=== PATIENT | male | born 1960 | race African-American/Black ===

== ENCOUNTER 2016-12-24 10:36 | Emergency (ER) | payer OTHER ==
[~2016-12-24] VITALS: Ht 172.7 cm; Wt 72.1 kg
[~2016-12-24 10:36] MED LIST: GABAPENTIN300 MG ORAL; GLIPIZIDE5 MG ORAL; IBUPROFEN600 MG ORAL; LASIX20 M1 ORAL; METFORMIN HCL500 M1 ORAL; NIFEDICAL XL30 MG ORAL; POTASSIUM CHLO20 ME2 ORAL; ZITHROMAX250 MG ORAL
[2016-12-24] MEDS ORDERED: NKM (10:44)
--- NOTE | 2016-12-24 11:00 | Emergency Room Report ---
History of Present Illness General Chief Complaint: Pain Source: Patient Present Illness HPI 56-year-old male, history of diabetes noncompliant with his medications, presenting with bilateral leg pain for one month. Patient states that she has actually had this pain for the last 2 years but it comes and goes. Patient describes pain as burning and tingling, sometimes pins and needles in the toes. Patient denies any fever or chills inability to ambulate. Patient states that he is supposed to be taking metformin for his diabetes, but has not been taking it because it upsets his stomach. Patient has not seen a doctor to replace medication Allergies: Coded Allergies: No Known Allergies (Unverified , 04/21/14) Patient History Past Medical History: see triage record Past Surgical History: none Pertinent Family History: none Reviewed Nursing Documentation: PMH: Agreed, PSxH: Agreed Nursing Documentation-PMH Hx Hypertension: Yes Hx Diabetes: Yes - DM2. Hx Cancer: No Hx Gastrointestinal Problems: No Hx Neurological Problems: No Review of Systems All Other Systems: negative except mentioned in HPI Physical Exam Vital Signs Date Time Temp Pulse Resp B/P (MAP) Pulse Ox O2 Delivery O2 Flow Rate FiO2 12/24/16 10:39 97.9 91 20 142/89 97 Room Air Sp02 EP Interpretation: reviewed, normal General Appearance: normal inspection, well appearing, no apparent distress, alert, GCS 15, non-toxic Head: normocephalic, atraumatic Eyes: bilateral eye normal inspection, bilateral eye PERRL, bilateral eye EOMI ENT: normal ENT inspection, normal pharynx, normal voice, moist mucus membranes Neck: normal inspection, full range of motion, supple Respiratory: normal inspection, lungs clear, normal breath sounds, no respiratory distress, no retraction, no wheezing, speaking full sentences, chest symmetrical Cardiovascular #1: normal inspection, regular rate, rhythm, no edema, normal capillary refill Cardiovascular #2: 2+ radial (R), 2+ radial (L) Gastrointestinal: normal inspection, non tender, soft, non-distended, no guarding Genitourinary: no CVA tenderness Musculoskeletal: normal inspection, back normal, normal range of motion, non- tender, other - No gross bony abnormalities bilateral lower extremities, full range of motion, no warmth or erythema, no effusion, no swelling Neurologic: normal inspection, alert, oriented x3, responsive, motor strength/ tone normal, sensory intact, normal gait, speech normal, other - Motors strength and sensation intact throughout all 4 extremities Psychiatric: normal inspection, judgement/insight normal, memory normal Skin: normal inspection, normal color, no rash, warm/dry, well hydrated, normal turgor Medical Decision Making Diagnostic Impression: Primary Impression: Chronic painful diabetic neuropathy ER Course 56 yo M. with bilateral lower extremity pain for one month DDX: History and physical not concerned with fracture or dislocation. No cellulitis. Likely secondary to diabetic neuropathy given history Plan: BGM, pain control ER course: BGM normal 120 Disposition: Patient is to be discharged to home. Prescriptions given are Tylenol Patient is instructed to follow up with their primary care doctor within one week as he will need a new diabetes medication regimen Strict return precautions discussed with patient such as fever, chills, worsening/severe pain, nausea, vomiting, which may indicate severe illness. Patient verbalizes understanding and agrees with plan. Please note that this Emergency Department Report was dictated using [employer] collections analyst technology software, occasionally this can lead to erroneous entry secondary to interpretation by the dictation equipment Last Vital Signs Date Time Temp Pulse Resp B/P (MAP) Pulse Ox O2 Delivery O2 Flow Rate FiO2 12/24/16 10:39 97.9 91 20 142/89 97 Room Air Disposition: HOME, SELF-CARE Condition: Stable Scripts Ibuprofen* (MOTRIN*) 600 Mg Tablet 600 MG ORAL Q8H Y for For Pain, #30 TAB 0 Refills Prov: Kindra Cordova M.D. 12/24/16 Patient Instructions: Neuropathic Pain Additional Instructions: Please follow up with your primary care doctor within 3 days for your diabetes Please come back to the emergency room if you are having severe/worsening pain, headache, chest pain, shortness of breath, or intractable nausea or vomiting Kindra Cordova M.D. Dec 24, 2016 11:00
[2016-12-24] MEDS ORDERED: IBUPROFEN600 MG ORAL (11:01)
[2016-12-24 11:20] VITALS: BP 159/105
[2016-12-24] MEDS ORDERED: Bacitracin Oint UD TOPIC ONE ×2 (11:30)
== END 2016-12-24 11:35 | disposition home or self-care (01) ==
LOC: EMR 10:56
DX: E11.40 Type 2 diabetes mellitus with diabetic neuropathy, unspecified (principal); I10 Essential (primary) hypertension; G89.29 Other chronic pain; M79.605 Pain in left leg; M79.604 Pain in right leg
CPT/HCPCS: 82962; 99284

== ENCOUNTER 2019-05-21 03:11 | Inpatient (IN) | payer MEDICAID, OTHER ==
[~2019-05-21] VITALS: Ht 172.7 cm; Wt 78.9 kg
[2019-05-21] VITALS (9 sets, daily range): BP systolic 129–193; BP diastolic 68–105
[~2019-05-21 03:11] MED LIST changes: +NKM
--- NOTE | 2019-05-21 03:20 | NUR ---
ED Nurse Note: Pt brought into ED from street by ADAM [id number] for c/o SOB and congestion. Pt breathing is labored, mild wheezing noted. Pt able to speak in full sentences. ADAM notes pt was recently seen at [facility] for the same complaint and does not want to be on the street. Pt appears anxious. Pt is aaox4, pt denies any drug or alcohol use tonight. Pt connected to site monitor, HR tachy. Will continue to monitor.
[2019-05-21] MEDS ORDERED: Ipratropium 0.02% Inh Soln 2.5ml UD HHN ONE (03:30)
[2019-05-21] MEDS ORDERED: Albuterol ud Inhalation HHN ONE (03:30)
[2019-05-21] MEDS ORDERED: Solu-MEDROL 125mg Inj IVP ONE (03:30)
[2019-05-21 03:49] LABS: BASOPHILS % (AUTO) 1.5 % (0.0-2.0); EOSINOPHILS % (AUTO) 3.5 % (0.0-3.0); HEMATOCRIT 30.6 % (42.0-52.0); HEMOGLOBIN 11.1 G/DL (14.2-18.0); LYMPHOCYTES % (AUTO) 24.2 % (20.0-45.0); MEAN CORPUSCULAR VOLUME 84 FL (80-99); NEUTROPHILS % (AUTO) 59.8 % (45.0-75.0); PLATELET COUNT 192 K/UL (150-450); RED BLOOD COUNT 3.63 M/UL (4.70-6.10); RED CELL DISTRIBUTION WIDTH 12.9 % (11.6-14.8); WHITE BLOOD COUNT 4.4 K/UL (4.8-10.8)
[2019-05-21 04:00] LABS: ANION GAP 11 mmol/L (5-15); BLOOD UREA NITROGEN 33 mg/dL (7-18); CALCIUM 7.8 MG/DL (8.5-10.1); CARBON DIOXIDE 22 MMOL/L (21-32); CHLORIDE 109 MMOL/L (98-107); CREATININE 3.5 MG/DL (0.55-1.30); POTASSIUM 4.6 MMOL/L (3.5-5.1); SODIUM 142 MMOL/L (136-145)
[2019-05-21] MEDS ORDERED: Albuterol 90mcg Inhaler 8gm INH STA (04:03)
[2019-05-21 04:12] LABS: ALANINE AMINOTRANSFERASE 32 U/L (12-78); ALBUMIN 2.3 G/DL (3.4-5.0); ALBUMIN/GLOBULIN RATIO 0.4 (1.0-2.7); ALKALINE PHOSPHATASE 172 U/L (46-116); ASPARTATE AMINO TRANSFERASE 33 U/L (15-37); BILIRUBIN,TOTAL 0.3 MG/DL (0.2-1.0); CREATINE KINASE 413 U/L (26-308)
[2019-05-21] MEDS ORDERED: Metoprolol Tartrate 5mg/5ml Inj IVP STA (04:19)
--- NOTE | 2019-05-21 04:19 | Emergency Room Report ---
History of Present Illness General Chief Complaint: Dyspnea/Respdistress Source: Patient, EMS Present Illness HPI Patient brought in by paramedics. Is complaining of dyspnea. Apparently he has a history of both congestive heart failure and COPD. He says he needs an albuterol or inhaler treatment. He does not know what prednisone is. Paramedics did not hear wheezes. Patient was discharged from [facility] yesterday. He has no inhaler. He complains of shortness of breath and wheezing. He denies any fevers or chills. He is not clear about what work-up or medications were given at [facility]. He does say he received a breathing treatment there. He is uncertain if labs were performed. The patient denies prior cardiac disease however review of previous diagnoses here reveals that he has been treated for congestive heart failure in the past. No fevers, chills, sore throat, chest pain, palpitations, nausea, vomiting, diarrhea, dysuria, abdominal pain, joint pain, rashes, depression, anxiety, visual changes, dizziness, headache. In 2014 is where his discharge diagnoses: 1. Chest discomfort likely secondary to diastolic dysfunction, congestive heart failure exacerbation. 2. Lower extremity edema likely secondary to diastolic dysfunction, congestive heart failure exacerbation. 3. Hypokalemia. 4. Diabetes type 2 with neuropathy. 5. Hypertension, poorly controlled. 6. Smoking. Allergies: Coded Allergies: No Known Allergies (Unverified , 04/21/14) Patient History Past Medical History: see triage record Social History: Denies: smoking - prior, alcohol use, drug use - prior tox + for cocaine Social History Narrative homeless - was in [employer] - not record 1 year Reviewed Nursing Documentation: PMH: Agreed; PSxH: Agreed Nursing Documentation-PMH Hx Hypertension: Yes Hx Diabetes: Yes Hx Cancer: No Hx Gastrointestinal Problems: No Hx Neurological Problems: No Review of Systems All Other Systems: negative except mentioned in HPI Physical Exam Vital Signs Date Time Temp Pulse Resp B/P (MAP) Pulse Ox O2 Delivery O2 Flow Rate FiO2 05/21/19 03:12 98.2 111 20 173/98 (123) 95 Room Air 05/21/19 03:30 21 Sp02 EP Interpretation: reviewed, abnormal - Interpreted as low by me General Appearance: alert, mild distress, other - GCS 14 - slightly confused or not answering questions Head: normocephalic Eyes: bilateral eye normal inspection, bilateral eye PERRL, bilateral eye EOMI ENT: EOM grossly intact, moist mucus membranes Neck: full range of motion, supple Respiratory: decreased breath sounds, rales, wheezing, expiration Cardiovascular #1: tachycardia, edema - 1+ bilateral legs Cardiovascular #2: 2+ radial (R) Gastrointestinal: normal inspection, non tender, soft, decreased bowel sounds Genitourinary: no CVA tenderness Musculoskeletal: back normal, no calf tenderness, pelvis stable Neurologic: alert, motor strength/tone normal, oriented - X2, sensory intact, speech normal Psychiatric: anxious, other - slightly confused or not answering fully Skin: no rash, warm/dry Procedures Critical Care Time Critical Care Time Total Critical Care Time: 30 min bedside evaluation and treatment excludes procedures (EKG). Reason for critical care: Dyspnea, elevated troponin, congestive heart failure, repeat evaluations, renal failure. Possible complications: hypotension, hypertension, AL, shock, arrhythmias, metabolic acidosis, end organ damage, respiratory failure. Interventions: Breathing treatments, Lasix, aspirin, repeat evaluations. Course: Patient presented with dyspnea. Evaluation reveals congestive heart failure and bronchospasm. Aggressive treatment undertaken. Positive troponin treated with aspirin and metoprolol. Hypertension also treated with repeated doses of metoprolol. Patient diuresing and improving. Patient seems to have functional decline and some memory loss. Consultations: nursing staff, EMS, review of medical records, admitting physician Performed by: Dr. Watson Tolerated well condition = serious Medical Decision Making Diagnostic Impression: Primary Impression: CHF (congestive heart failure), NYHA class II Qualified Codes: I50.31 - Acute diastolic (congestive) heart failure Additional Impressions: Elevated troponin Renal failure Qualified Codes: N17.9 - Acute kidney failure, unspecified Declining functional status ER Course Patient presents with dyspnea. Differential includes COPD exacerbation, acute myocardial infarction, pneumonia, congestive heart failure amongst others. He has bronchospasm now. Evaluation with EKG, chest x-ray and labs. Patient will be treated with Solu-Medrol and breathing treatments. EKG sinus tachycardia with right bundle branch block nonspecific ST-T wave changes no injury pattern. Patient improved with breathing treatments. Complaining about leg cramps. Magnesium added. stretching leg muscles with improvement. 415 call with positive troponin. Aspirin nitrates and 1 dose of metoprolol ordered. Renal failure and elevated BNP. Lasix ordered. BP still high. Metoprolol repeated. Due to prolonged period for transport, patient admitted to Dr. Gentile. Not sure nature of confusion and/or lack of memory or truthful recall of prior events. BP better after repeat metoprolol. Laboratory Tests Test 05/21/19 03:32 05/21/19 05:30 White Blood Count 4.4 K/UL (4.8-10.8) L Red Blood Count 3.63 M/UL (4.70-6.10) L Hemoglobin 11.1 G/DL (14.2-18.0) L Hematocrit 30.6 % (42.0-52.0) L Mean Corpuscular Volume 84 FL (80-99) Mean Corpuscular Hemoglobin 30.6 PG (27.0-31.0) Mean Corpuscular Hemoglobin Concent 36.2 G/DL (32.0-36.0) H Red Cell Distribution Width 12.9 % (11.6-14.8) Platelet Count 192 K/UL (150-450) Mean Platelet Volume 6.7 FL (6.5-10.1) Neutrophils (%) (Auto) 59.8 % (45.0-75.0) Lymphocytes (%) (Auto) 24.2 % (20.0-45.0) Monocytes (%) (Auto) 11.0 % (1.0-10.0) H Eosinophils (%) (Auto) 3.5 % (0.0-3.0) H Basophils (%) (Auto) 1.5 % (0.0-2.0) Prothrombin Time 10.2 SEC (9.30-11.50) Prothrombin Time INR 1.0 (0.9-1.1) Activated Partial Thromboplast Time 33 SEC (23-33) Sodium Level 142 MMOL/L (136-145) Potassium Level 4.6 MMOL/L (3.5-5.1) Chloride Level 109 MMOL/L (98-107) H Carbon Dioxide Level 22 MMOL/L (21-32) Anion Gap 11 mmol/L (5-15) Blood Urea Nitrogen 33 mg/dL (7-18) H Creatinine 3.5 MG/DL (0.55-1.30) H Estimate Glomerular Filtration Rate 21.8 mL/min (>60) Glucose Level 114 MG/DL (74-106) H Calcium Level 7.8 MG/DL (8.5-10.1) L Magnesium Level 1.3 MG/DL (1.8-2.4) L Total Bilirubin 0.3 MG/DL (0.2-1.0) Aspartate Amino Transferase (AST) 33 U/L (15-37) Alanine Aminotransferase (ALT) 32 U/L (12-78) Alkaline Phosphatase 172 U/L (46-116) H Total Creatine Kinase 413 U/L (26-308) H Troponin I 0.146 ng/mL (0.000-0.056) Pro-B-Type Natriuretic Peptide 13871 pg/mL (0-125) H Total Protein 7.9 G/DL (6.4-8.2) Albumin 2.3 G/DL (3.4-5.0) L Globulin 5.6 g/dL Albumin/Globulin Ratio 0.4 (1.0-2.7) L Urine Color Pale yellow Urine Appearance Clear Urine pH 6.5 (4.5-8.0) Urine Specific [place] 1.010 (1.005-1.035) Urine Protein 4+ (NEGATIVE) H Urine Glucose (UA) 2+ (NEGATIVE) H Urine Ketones Negative (NEGATIVE) Urine Blood 3+ (NEGATIVE) H Urine Nitrite Negative (NEGATIVE) Urine Bilirubin Negative (NEGATIVE) Urine Urobilinogen Normal MG/DL (0.0-1.0) Urine Leukocyte Esterase Negative (NEGATIVE) Urine RBC 5-10 /HPF (0 - 0) H Urine WBC 0 /HPF (0 - 0) Urine Squamous Epithelial Cells None /LPF (NONE/OCC) Urine Bacteria None /HPF (NONE) Urine Opiates Screen Negative (NEGATIVE) Urine Barbiturates Screen Negative (NEGATIVE) Phencyclidine (PCP) Screen Negative (NEGATIVE) Urine Amphetamines Screen Negative (NEGATIVE) Urine Benzodiazepines Screen Negative (NEGATIVE) Urine Cocaine Screen Negative (NEGATIVE) Urine Marijuana (THC) Screen Negative (NEGATIVE) EKG Diagnostic Results Rate: normal Rhythm: NSR ST Segments: no acute changes - Right bundle branch block Rhythm Strip Diag. Results EP Interpretation: yes Rhythm: NSR, no PVC's, no ectopy Chest X-Ray Diagnostic Results Chest X-Ray Diagnostic Results : Chest X-Ray Ordered: Yes # of Views/Limited/Complete: 1 View Indication: Shortness of Breath EP Interpretation: Yes Interpretation: no effusion, no pneumothorax, other - CHF Impression: Other Electronically Signed by: Electronically signed by Jamie Watson MD Last Vital Signs Date Time Temp Pulse Resp B/P (MAP) Pulse Ox O2 Delivery O2 Flow Rate FiO2 05/21/19 08:25 Room Air 05/21/19 08:00 97.9 81 21 136/81 (99) 98 05/21/19 06:30 21 Status: improved Disposition: ADMITTED INPATIENT Condition: Serious Referrals: [facility],REFERRING (PCP) Jamie Watson MD May 21, 2019 04:19
[2019-05-21] MEDS ORDERED: Nitroglycerin 2% oint pkt TOPIC ONE (04:30)
--- NOTE | 2019-05-21 04:45 | NUR ---
ED Nurse Note: Pt resting in bed at this time, but was able to use urinal at bedside. Pt is in no acute distress at this time.
--- NOTE | 2019-05-21 05:30 | NUR ---
ED Nurse Note: RN at bedside to do pt belonging list. Pt being uncooperative and verbally abusive with RNs. Pt stated "don't touch my shit" "I already told you what's inside" and grabbed backpack from RN.
[2019-05-21 05:47] LABS: APPEARANCE,URINE CLEAR; BILIRUBIN, URINE NEGATIVE (NEGATIVE); COLOR,URINE PALE YELLOW; GLUCOSE, URINE (UA) 2+ (NEGATIVE); KETONES,URINE NEGATIVE (NEGATIVE); LEUKOCYTE ESTERASE ,URINE NEGATIVE (NEGATIVE); NITRITE,URINE NEGATIVE (NEGATIVE); PH,URINE 6.5 (4.5-8.0); PROTEIN,URINE 4+ (NEGATIVE); UROBILINOGEN,URINE NORMAL MG/DL (0.0-1.0)
[2019-05-21] MEDS: Metoprolol Tartrate 5mg/5ml Inj IVP SCH ×2 (05:50→05:57)
--- NOTE | 2019-05-21 06:00 | NUR ---
ED Nurse Note: Pt refused swabs for cre, vre, mrsa at this time and is acting uncooperative and using inapproriate language with RNs.
--- NOTE | 2019-05-21 06:10 | NUR ---
ED Nurse Note: Report given to SULY Boone.
--- NOTE | 2019-05-21 06:30 | NUR ---
ED Nurse Note: Pt taken to unit via gurney by RNs. Pt stable per ERMD, pt is aaox4, no acute distress noted. Pt is breathing normal, speaking in full sentences. VSS. Pt being uncooperative. Pt IV patent and intact. Pt belongings sent with pt.
--- NOTE | 2019-05-21 06:30 | NUR ---
NURSE NOTES: Received report from SULY Anthony, pt. brought up from ER, auto mechanic apprentice placed, VS taken, pt. refusing to do body assessment, bed in lowest position and call light within easy reach, bed alarm on, side rails up x's3, pt. aware to ask for assist when ambulating, pt. appears to be sating well on room air at 98%- no distress noted, urinal at bedside and within easy reach, RFA 22G IV intact/ patent, safety measures continued, will continue with plan of care. Addendum: 05/21/19 at 0658 by VANESSA AMBROSE RN RN Belongings list gone over with ER Nurse- emptied contents of bag- rx sent back to ER to be held until pt. discharge- charge nurse Roverto matias.
--- NOTE | 2019-05-21 06:35 | NUR ---
ED Nurse Note: Pt belongings counted upstairs on floor with unit nurses. Pt medications found in backpack and taken from pt. Pt meds locked in ER med box.
[2019-05-21] MEDS ORDERED: QUERCETIN DIHYDR1 GM MC (06:51)
[2019-05-21] MEDS ORDERED: AMLODIPINE BESY10 MG ORAL (06:51)
[2019-05-21] MEDS ORDERED: CARVEDILOL12.5 MG ORAL (06:51)
--- NOTE | 2019-05-21 07:31 | NUR ---
HAND-OFF: Report given to Kasey RN, pt. remains stable and no signs of distress noted- aware to f/u on admission orders and labs from am.
--- NOTE | 2019-05-21 07:32 | NUR ---
NURSE NOTES: Received patient in bed. Awake, verbal, able to make needs known. Call light within reach. On room air, no respiratory distress. Will admit to SDU level of care.
--- NOTE | 2019-05-21 08:45 | NUR ---
NURSE NOTES: Dr. Gentile called back, with orders to have Dr. Perez for cardiac consult, Cardiac diet, Troponin every 8 hours and ASA.
--- NOTE | 2019-05-21 09:00 | NUR ---
NURSE NOTES: Dr. Gentile at bedside.
--- NOTE | 2019-05-21 09:50 | NUR ---
NURSE NOTES: Dr. Perez at bedside.
--- NOTE | 2019-05-21 09:54 | NUR ---
NURSE NOTES: Dr. Perez ordered STAT 2D echo.
--- NOTE | 2019-05-21 09:58 | Cardiac Electrophysiology PN ---
Subjective Subjective [id number] Troponin leak could be due to Cr 3.5 Stat ECHO and repeat troponin Objective Last 24 Hour Vital Signs Date Time Temp Pulse Resp B/P (MAP) Pulse Ox O2 Delivery O2 Flow Rate FiO2 05/21/19 08:25 Room Air 05/21/19 08:00 97.9 81 21 136/81 (99) 98 05/21/19 07:47 78 05/21/19 06:50 97.8 77 20 165/99 (121) 98 05/21/19 06:30 98.2 80 17 160/67 99 Room Air 21 05/21/19 05:57 91 193/95 05/21/19 05:55 98.2 81 18 193/95 99 Room Air 21 05/21/19 05:50 83 175/105 05/21/19 05:50 98.2 90 20 175/105 99 Room Air 21 05/21/19 04:45 98.2 90 20 165/97 99 Room Air 21 05/21/19 04:34 69 173/98 05/21/19 04:34 173/98 05/21/19 03:57 69 18 100 Room Air 21 05/21/19 03:30 68 18 100 Room Air 21 05/21/19 03:20 111 20 Room Air 05/21/19 03:20 98.2 111 25 173/98 95 Room Air 05/21/19 03:12 98.2 111 20 173/98 (123) 95 Room Air Intake and Output 05/20/19 05/21/19 19:00 07:00 Intake Total 0 ml Balance 0 ml Intake Oral 0 ml Laboratory Tests Test 05/21/19 03:32 05/21/19 05:30 White Blood Count 4.4 K/UL (4.8-10.8) L Red Blood Count 3.63 M/UL (4.70-6.10) L Hemoglobin 11.1 G/DL (14.2-18.0) L Hematocrit 30.6 % (42.0-52.0) L Mean Corpuscular Volume 84 FL (80-99) Mean Corpuscular Hemoglobin 30.6 PG (27.0-31.0) Mean Corpuscular Hemoglobin Concent 36.2 G/DL (32.0-36.0) H Red Cell Distribution Width 12.9 % (11.6-14.8) Platelet Count 192 K/UL (150-450) Mean Platelet Volume 6.7 FL (6.5-10.1) Neutrophils (%) (Auto) 59.8 % (45.0-75.0) Lymphocytes (%) (Auto) 24.2 % (20.0-45.0) Monocytes (%) (Auto) 11.0 % (1.0-10.0) H Eosinophils (%) (Auto) 3.5 % (0.0-3.0) H Basophils (%) (Auto) 1.5 % (0.0-2.0) Prothrombin Time 10.2 SEC (9.30-11.50) Prothromb Time International Ratio 1.0 (0.9-1.1) Activated Partial Thromboplast Time 33 SEC (23-33) Sodium Level 142 MMOL/L (136-145) Potassium Level 4.6 MMOL/L (3.5-5.1) Chloride Level 109 MMOL/L (98-107) H Carbon Dioxide Level 22 MMOL/L (21-32) Anion Gap 11 mmol/L (5-15) Blood Urea Nitrogen 33 mg/dL (7-18) H Creatinine 3.5 MG/DL (0.55-1.30) H Estimat Glomerular Filtration Rate 21.8 mL/min (>60) Glucose Level 114 MG/DL (74-106) H Calcium Level 7.8 MG/DL (8.5-10.1) L Magnesium Level 1.3 MG/DL (1.8-2.4) L Total Bilirubin 0.3 MG/DL (0.2-1.0) Aspartate Amino Transf (AST/SGOT) 33 U/L (15-37) Alanine Aminotransferase (ALT/SGPT) 32 U/L (12-78) Alkaline Phosphatase 172 U/L (46-116) H Total Creatine Kinase 413 U/L (26-308) H Troponin I 0.146 ng/mL (0.000-0.056) Pro-B-Type Natriuretic Peptide 06256 pg/mL (0-125) H Total Protein 7.9 G/DL (6.4-8.2) Albumin 2.3 G/DL (3.4-5.0) L Globulin 5.6 g/dL Albumin/Globulin Ratio 0.4 (1.0-2.7) L Urine Color Pale yellow Urine Appearance Clear Urine pH 6.5 (4.5-8.0) Urine Specific [place] 1.010 (1.005-1.035) Urine Protein 4+ (NEGATIVE) H Urine Glucose (UA) 2+ (NEGATIVE) H Urine Ketones Negative (NEGATIVE) Urine Blood 3+ (NEGATIVE) H Urine Nitrite Negative (NEGATIVE) Urine Bilirubin Negative (NEGATIVE) Urine Urobilinogen Normal MG/DL (0.0-1.0) Urine Leukocyte Esterase Negative (NEGATIVE) Urine RBC 5-10 /HPF (0 - 0) H Urine WBC 0 /HPF (0 - 0) Urine Squamous Epithelial Cells None /LPF (NONE/OCC) Urine Bacteria None /HPF (NONE) Urine Opiates Screen Negative (NEGATIVE) Urine Barbiturates Screen Negative (NEGATIVE) Phencyclidine (PCP) Screen Negative (NEGATIVE) Urine Amphetamines Screen Negative (NEGATIVE) Urine Benzodiazepines Screen Negative (NEGATIVE) Urine Cocaine Screen Negative (NEGATIVE) Urine Marijuana (THC) Screen Negative (NEGATIVE) Microbiology Date/Time Source Procedure Growth Status 05/21/19 06:30 Rectum Received Luís Peerz MD May 21, 2019 09:58
[2019-05-21] MEDS: Albuterol/Ipratropium 3ml neb HHN SCH ×4 (12:22→23:00)
--- NOTE | 2019-05-21 13:13 | Diagnostic Imaging Report ---
Indication: Dyspnea Comparison: 05/26/2015 A single view chest radiograph was obtained. Findings: Interstitial edema demonstrated with prominent pulmonary vascularity and borderline cardiomegaly. Bones are slightly osteopenic. IMPRESSION: Interstitial edema/CHF versus pneumonitis. Correlate clinically
--- NOTE | 2019-05-21 13:27 | NUR ---
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 98.2 HR 111 RR 20 B/P 173/98 WBC 4.4 BUN 33 CR 3.5 MG 1.3 ALT 172 CK 413 TROP 0.146 BNP [id number] IS: LASIX IV SOLU MEDROL IV ALB HHN ALT HHN NITRO SL ASA PO ADMITTED TO STEP DOWN STEP DOWN STATUS DCP PENDING HOSPITAL STAY
--- NOTE | 2019-05-21 13:36 | NUR ---
NURSE NOTES: Dr. Perez made aware regarding the trending up troponin level. Awaiting for Doctor to reply.
--- NOTE | 2019-05-21 15:15 | NUR ---
NURSE NOTES: Dr. Madrigal at bedside.
--- NOTE | 2019-05-21 16:00 | History and Physical Report ---
DATE OF ADMISSION: 05/21/2019 REASON FOR ADMISSION: Dyspnea and chest pain. HISTORY OF PRESENT ILLNESS: The patient is a 58-year-old patient brought in by paramedics complaining of dyspnea. He has history of CHF, COPD. The patient was given nebs. The patient was discharged from [facility] yesterday without any inhalers. The patient presents with complaint of shortness of breath and wheezing. The patient was seen and evaluated for possibility of chest pain, acute coronary syndrome. PAST MEDICAL HISTORY: Notable for diastolic dysfunction, congestive heart failure, diabetes, hypertension, smoking, possible COPD. MEDICATIONS: Reviewed. ALLERGIES: Reviewed. SOCIAL HISTORY: The patient does have a history of smoking, but does not smoke currently. The patient does have a history of cocaine use. The patient is homeless. FAMILY HISTORY: Otherwise noncontributory. REVIEW OF SYSTEMS: Notable for hypertension, diabetes, otherwise negative. PHYSICAL EXAMINATION: GENERAL: The patient is a well-developed male without significant distress. VITAL SIGNS: Blood pressure 136/81, pulse 81, respiratory rate 21, O2 saturation 98%. The patient is afebrile. HEENT: Negative. NECK: Supple. LUNGS: Notable for reduced breath sounds. Occasional wheezes. CARDIAC: S1 and S2. Regular rate and rhythm. ABDOMEN: Soft, nontender. EXTREMITIES: No edema. LABORATORY DATA: Reviewed. BUN 33, creatinine 3.5. Liver enzymes elevated. Troponin 0.146. White count 4.4, hematocrit 30, and platelets reviewed. IMPRESSION: Chest pain, congestive heart failure, longstanding history of smoking, possible COPD, hypertension, chronic pain syndrome, diabetes, and hyperlipidemia. RECOMMENDATIONS: Supportive care. We will assess further as to underlying issues with respiratory status and optimize. Cardiac evaluation. Renal evaluation to follow. Reassess and recommend further for changes, interventions, and safe discharge. Konstantin Gentile M.D. DR: Teri JOB#: [id number] CC: SHELLY
--- NOTE | 2019-05-21 16:30 | Consultation ---
DATE OF CONSULTATION: 05/21/2019 CARDIOLOGY CONSULTATION CONSULTING PHYSICIAN: Luís Perez M.D. REFERRING PHYSICIAN: Konstantin Gentile M.D. REASON FOR CONSULTATION: Chest pain in a patient with history of congestive heart failure. HISTORY OF PRESENT ILLNESS: The patient is a 58-year-old gentleman with history of hypertension and congestive heart failure, who is currently homeless, was brought in from the street as he was complaining of shortness of breath. The patient was discharged from [facility] yesterday with similar complaint. Denies any fever, chills, or nausea, vomiting, or diaphoresis. The patient was admitted and EKG showed sinus rhythm, right bundle-branch block, however, troponin was elevated. At the time of my evaluation, the patient denies any chest pain. REVIEW OF SYSTEMS: Negative other than what was mentioned in the history of present illness. PAST MEDICAL HISTORY: As mentioned above. FAMILY HISTORY: Noncontributory. SOCIAL HISTORY: He smokes cigarettes and weed, but denies using any other street drugs. MEDICATIONS: Per reconciliation, but currently he does not take any. PHYSICAL EXAMINATION: VITAL SIGNS: Blood pressure 173/98, pulse is 110, respirations 20. HEAD AND NECK: Shows positive JVD. LUNGS: Decreased breath sounds. CARDIOVASCULAR: Shows regular S1 and S2 with no gallop. ABDOMEN: Soft. EXTREMITIES: 2+ pitting edema. LABORATORY AND DIAGNOSTIC DATA: His labs show white count of 4.4, hemoglobin 11.1, hematocrit of 30, and platelet count 192,000. Sodium is 142, potassium 4.6, BUN of 33, creatinine 3.5, and glucose of 114. His troponin is 0.146. ASSESSMENT AND PLAN: 1. Non-ST elevation myocardial infarction, likely type 2. His EKG does not show any active ischemic changes. Elevated troponin may be due to the patient's renal failure with the creatinine of 3.5. We will completely rule out HI protocol and repeat the EKG and get an echocardiogram to evaluate for ejection fraction and wall motion abnormality. In the meantime, keep the patient on aspirin and statin. I will start the patient on low-dose beta-chet until we have further information regarding his troponins. 2. Congestive heart failure. Again, echocardiogram is pending. I will start him on Lasix 40 mg IV b.i.d. 3. Renal failure. I am not sure about the duration, but the labs at the [facility] in 2015, his creatinine was 0.8 and currently is at 3.5. His BUN is also more than . 4. History of substance abuse with cocaine based on the labs in 2014. Currently, his urine toxicology screen is negative. 5. Hypertension. Start him on Norvasc 5 mg b.i.d. and small dose of beta-chet in view of positive troponin. Thank you very much, Dr. Gentile, for allowing me to participate in the care of this patient. Please do not hesitate to contact me for any questions regarding my evaluation. Luís Perez M.D. DR: JODEE JOB#: [id number] CC:
--- NOTE | 2019-05-21 16:45 | NUR ---
FIELD SERVICE SPECIALIST NOTE PT was identified as a homeless. KIERRA met w/ pt and completed psychosocial assessment. Pt presents as A&O 4x. Pt has been homeless, staying at one of his friend's houses (pt didn't provide the specific location). Pt is single, never and has no children. Pt has no family support/contact. Pt receives SSI appx $900/mo, self payee and he reports he has some income left for this month. RUDS all negative. Pt denies current substance abuse. Pt denies SI/HI. Pt is independent w/ ADLs and pt is ambulatory w/o DME. Emergency contact provided: René Farfan (friend) [phone] SW and pt explored possible placement options including board and cares and independent living facilities. Pt plans to get his own place in the future but agreed to be assisted w/ temporary housing until he finds his own place. SW explained the difference between independent living (unlicensed) and board and cares (licensed). Pt states he will consider such options and asked KIERRA to give him some time to decide. KIERRA will continue to F/U. Signed: 05/21/19 at 1655 by CATHERINE LOZADA <Co-Signature Required>
[2019-05-21] MEDS ORDERED: metFORMIN 500mg tab ORAL SCH (18:00)
--- NOTE | 2019-05-21 18:45 | Consultation ---
DATE OF CONSULTATION: 05/21/2019 CONSULTING PHYSICIAN: Julio C Madrigal M.D. REFERRING PHYSICIAN: Konstantin Gentile M.D. REASON FOR CONSULTATION: 1. Acute kidney injury. 2. CKD, stage IIIB. HISTORY OF PRESENT ILLNESS: The patient is a 58-year-old gentleman admitted for further evaluation and care of dyspnea. He has underlying history of congestive heart failure and chronic obstructive pulmonary disease. He was requesting albuterol nebulizer treatments. Although documented in chart, the patient was discharged from [facility], he denies as such but states that he was supposed to see a barber shop manager at [facility]. History is unreliable. Current creatinine is 3.5. No creatinine for over 5 years were baseline was approximately 1.3. ALLERGIES: No known drug allergies. PAST MEDICAL HISTORY: 1. COPD. 2. CHF. 3. CKD stage IIIB. SOCIAL HISTORY: Positive for tobacco, alcohol, and cocaine use. FAMILY HISTORY: Positive for hypertension. REVIEW OF SYSTEMS: NEUROLOGIC: The patient denies headache, change in vision, syncope, or presyncopal episodes. CARDIOVASCULAR: No current chest pain, palpitations, angina. PULMONARY: Mild shortness of breath, nonproductive cough. GASTROINTESTINAL/GENITOURINARY: No change in bowel habits. No nausea, vomiting, diarrhea. ENDOCRINOLOGY: No night sweats, fever, or chills. MUSCULOSKELETAL: The patient is feeling tired, weak, and fatigued. LABORATORY AND DIAGNOSTIC DATA: Labs dated 05/21/2019 white cell count 4.4, hemoglobin 11.1, platelet count 192,000. Sodium 142, potassium 4.6, creatinine 3.5. Brain natriuretic peptide 22,666. PHYSICAL EXAMINATION: VITAL SIGNS: Blood pressure 135/68, O2 saturation 98% on room air, pulse 87, temperature 97.8. GENERAL: The patient awake, alert, not otherwise in distress. HEENT: Extraocular muscles intact. No lymphadenopathy noted. Oropharyngeal mucosa is clear and dry. CARDIOVASCULAR: S1 and S2. No rubs or gallops. PULMONARY: Clear to auscultation bilaterally. No rales, rhonchi, or wheezes. ABDOMEN: Nondistended and nontender. EXTREMITIES: No edema. ASSESSMENT AND PLAN: 1. Acute kidney injury on chronic kidney disease stage IIIB. I will try to ascertain his baseline creatinine from [facility]. At this time, continue diuresing the patient for congestive heart failure, possible component of cardiorenal syndrome. Avoid any nephrotoxins. We will discontinue Motrin. 2. Chronic obstructive pulmonary disease exacerbation. Defer management to Pulmonary. 3. Congestive heart failure. Continue Lasix therapy. We will discontinue ibuprofen. 4. Hypertension. Adjust medications as deemed appropriate. Julio C Madrigal MD DR: Lachelle JOB#: [id number] CC:
--- NOTE | 2019-05-21 19:00 | NUR ---
NURSE NOTES: Received report from SULY Parks. Pt. observed resting in bed; awake and alert x4. Pt. refusing to do body assessment, AM nurse endorsed skin remains intact. Pt denies skin alterations. Pt is on tele monitor with a HR of 93 noted, no signs of cardiac distress noted. Pt remains on RA with no s/sx of respiratory distress noted. Pt admits to SOB with exertion; lungs clear bilaterally upon auscultation. O2 saturation of 94% noted at this time. Urinal present at bedside, pt encouraged to use urinal and call light for assistance despite being ambulatory. RFA 22G IV catheter noted which remains asymptomatic, intact and patent. Pt denies pain at this time. Pt remains resting in bed; bed remains in lowest position with safety wheels engaged, call light within easy reach, bed alarm on, side rails up x3 and bed alarm activated. Will continue plan of care. Will continue to monitor.
--- NOTE | 2019-05-21 19:05 | NUR ---
HAND-OFF: Report given to Junito PARKINSON RN. Remains room air. No respiratory distress.
--- NOTE | 2019-05-21 20:00 | NUR ---
NURSE NOTES: Troponin value remains elevated despite trending downward. 12 lead EKG performed at bedside; results same as last 12 lead as follows: Normal sinus Rhythm; Right BBB, T Wave abnormality. Pt remains resting in bed; bed remains in lowest position with safety wheels engaged, call light within easy reach, bed alarm on, side rails up x3 and bed alarm activated. Will continue plan of care. Will continue to monitor. Addendum: 05/22/19 at 0041 by ELINA PARKINSON RN Will update rustic terrazzo setter regarding diagnostics.
[2019-05-21] MEDS: Heparin 5000 units/ml inj SUBQ SCH (20:51)
--- NOTE | 2019-05-21 21:12 | NUR ---
NURSE NOTES: Pt provided with materials for oral care and bed bath. Pt performed care with minimal assistance and declines linen change at this time. Pt remains resting in bed; bed remains in lowest position with safety wheels engaged, call light within easy reach, bed alarm on, side rails up x3 and bed alarm activated. Will continue plan of care. Will continue to monitor.
[2019-05-22] VITALS: BP 132/78
[2019-05-22] MEDS: Albuterol/Ipratropium 3ml neb HHN SCH ×6 (03:00→22:43)
[2019-05-22 04:00] VITALS: BP 134/80
[2019-05-22 05:30] LABS: BASOPHILS % (AUTO) 0.5 % (0.0-2.0); EOSINOPHILS % (AUTO) 0.6 % (0.0-3.0); HEMATOCRIT 23.3 % (42.0-52.0); HEMOGLOBIN 8.3 G/DL (14.2-18.0); LYMPHOCYTES % (AUTO) 17.6 % (20.0-45.0); MEAN CORPUSCULAR VOLUME 84 FL (80-99); MONOCYTES % (AUTO) 9.4 % (1.0-10.0); NEUTROPHILS % (AUTO) 71.9 % (45.0-75.0); PLATELET COUNT 172 K/UL (150-450); RED BLOOD COUNT 2.76 M/UL (4.70-6.10); RED CELL DISTRIBUTION WIDTH 12.5 % (11.6-14.8); WHITE BLOOD COUNT 4.6 K/UL (4.8-10.8)
[2019-05-22 05:55] LABS: ANION GAP 12 mmol/L (5-15); BLOOD UREA NITROGEN 47 mg/dL (7-18); CALCIUM 7.6 MG/DL (8.5-10.1); CARBON DIOXIDE 22 MMOL/L (21-32); CHLORIDE 107 MMOL/L (98-107); CREATININE 4.2 MG/DL (0.55-1.30); POTASSIUM 3.7 MMOL/L (3.5-5.1); SODIUM 141 MMOL/L (136-145)
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
--- NOTE | 2019-05-22 07:25 | NUR ---
HAND-OFF: Report given to SULY Carter. Pt remains stable at this time.
--- NOTE | 2019-05-22 07:30 | NUR ---
NURSE NOTES: Received patient from SULY Haas. Patient is awake in bed, patient is AOx3-4. Patient has no reports of cardiac arrythmias at this time. Patient is on room air and showing there is no signs of respiratory distress. Patient has a RFA 22g patent and flushing properly. Bed is locked, alarmed, and in the lowest position. Side rails x3 and call light is within reach will continue to monitor.
--- NOTE | 2019-05-22 07:35 | NUR ---
HAND-OFF: Report given to Bia Tomas RN. Pt remains stable at this time.
[2019-05-22 08:00] VITALS: BP 133/77
[2019-05-22] MEDS: Aspirin Baby 81mg ORAL SCH (09:14)
[2019-05-22] MEDS: Metoprolol Succinate XL 25mg tab ORAL SCH (09:15)
[2019-05-22] MEDS: Heparin 5000 units/ml inj SUBQ SCH ×2 (09:16→20:19)
--- NOTE | 2019-05-22 10:33 | Diagnostic Imaging Report ---
Indication:Elevated Bun and Creatinine. Technique: Grayscale and duplex Doppler imaging of the kidneys performed. Comparison: None Findings: The size, contour, and echogenicity of both kidneys are within normal limits. There is no hydronephrosis.. Multiple small cysts are noted within the right kidney largest measuring 1.4 cm. The right kidney measures 10.5 cm. in length. The left kidney measures 11.2 cm. in length. The IVC is patent. Urinary bladder is unremarkable. IMPRESSION: Negative ultrasound the kidneys. Multiple small cysts within the right kidney.
--- NOTE | 2019-05-22 10:44 | Cardiac Electrophysiology PN ---
Assessment/Plan Assessment/Plan 1. Non-ST elevation myocardial infarction, likely type 2. All troponins less than 0.2. His EKG does not show any active ischemic changes. Elevated troponin likely due to the patient's renal failure with the creatinine of 3.5. Continue aspirin, Toprol 25 daily and Lipitor 2. Congestive heart failure due to diastolic dysfunction. EF 50%. On Lasix 40 mg IV b.i.d. 3. HTN On Norvasc 5 mg daily and Toprol 25 daily. 4. Acute Renal failure. Labs at the [facility] in 2015, his creatinine was 0.8 and currently is at 4.2. FU Dr. Madrigal 5. History of substance abuse with cocaine based on the labs in 2014. Currently, his urine toxicology screen is negative. STACY RN Subjective Subjective No CP. Troponin level coming down Objective Last 24 Hour Vital Signs Date Time Temp Pulse Resp B/P (MAP) Pulse Ox O2 Delivery O2 Flow Rate FiO2 05/22/19 09:15 95 133/77 05/22/19 09:14 95 133/77 05/22/19 08:00 Room Air 05/22/19 08:00 97.9 95 18 133/77 (95) 96 05/22/19 07:39 88 18 100 Room Air 21 84 18 95 05/22/19 07:37 89 05/22/19 04:00 97.8 92 18 134/80 (98) 96 05/22/19 04:00 Room Air 05/22/19 03:43 83 05/22/19 00:00 98.4 85 20 132/78 (96) 95 05/22/19 00:00 Room Air 05/21/19 23:35 89 05/21/19 20:00 Room Air 05/21/19 20:00 98.9 93 20 129/70 (89) 94 05/21/19 19:42 98 18 100 Room Air 96 18 96 05/21/19 19:22 94 05/21/19 16:45 86 18 100 Room Air 85 18 97 05/21/19 16:00 Room Air 05/21/19 16:00 98.3 84 21 152/71 (98) 97 05/21/19 16:00 82 05/21/19 14:32 85 18 97 Room Air 05/21/19 12:00 97.8 87 23 135/68 (90) 98 05/21/19 12:00 Room Air 05/21/19 11:45 96 Intake and Output 05/21/19 05/22/19 19:00 07:00 Intake Total 560 ml 240 ml Output Total 900 ml 200 ml Balance -340 ml 40 ml Intake Oral 360 ml 240 ml IV Total 200 ml Output Urine Total 900 ml 200 ml Laboratory Tests Test 05/21/19 11:48 05/21/19 19:58 05/22/19 04:00 Troponin I 0.195 ng/mL (0.000-0.056) 0.186 ng/mL (0.000-0.056) 0.187 ng/mL (0.000-0.056) White Blood Count 4.6 K/UL (4.8-10.8) L Red Blood Count 2.76 M/UL (4.70-6.10) L Hemoglobin 8.3 G/DL (14.2-18.0) L Hematocrit 23.3 % (42.0-52.0) L Mean Corpuscular Volume 84 FL (80-99) Mean Corpuscular Hemoglobin 30.0 PG (27.0-31.0) Mean Corpuscular Hemoglobin Concent 35.6 G/DL (32.0-36.0) Red Cell Distribution Width 12.5 % (11.6-14.8) Platelet Count 172 K/UL (150-450) Mean Platelet Volume 6.9 FL (6.5-10.1) Neutrophils (%) (Auto) 71.9 % (45.0-75.0) Lymphocytes (%) (Auto) 17.6 % (20.0-45.0) L Monocytes (%) (Auto) 9.4 % (1.0-10.0) Eosinophils (%) (Auto) 0.6 % (0.0-3.0) Basophils (%) (Auto) 0.5 % (0.0-2.0) Sodium Level 141 MMOL/L (136-145) Potassium Level 3.7 MMOL/L (3.5-5.1) Chloride Level 107 MMOL/L (98-107) Carbon Dioxide Level 22 MMOL/L (21-32) Anion Gap 12 mmol/L (5-15) Blood Urea Nitrogen 47 mg/dL (7-18) H Creatinine 4.2 MG/DL (0.55-1.30) H Estimat Glomerular Filtration Rate 17.7 mL/min (>60) Glucose Level 121 MG/DL (74-106) H Hemoglobin A1c 5.6 % (4.3-6.0) Calcium Level 7.6 MG/DL (8.5-10.1) L Pro-B-Type Natriuretic Peptide > 29482 pg/mL (0-125) H Microbiology Date/Time Source Procedure Growth Status 05/21/19 06:30 Rectum Received Objective HEAD AND NECK: Shows positive JVD. LUNGS: Decreased breath sounds. CARDIOVASCULAR: Shows regular S1 and S2 with no gallop. ABDOMEN: Soft. EXTREMITIES: 2+ pitting edema. Luís Perez MD May 22, 2019 10:44
[2019-05-22 11:31] VITALS: BP 142/84
--- NOTE | 2019-05-22 12:10 | Nephrology Progress Note ---
Assessment/Plan Assessment/Plan: A/P 1. DANYA on CKD 3 stage IIIB/4. - NSAIDS stopped - on lasix for CRS - monitor and track down baseline renal function 2. Chronic obstructive pulmonary disease exacerbation. Defer management to Pulmonary. 3. Congestive heart failure. Continue Lasix therapy. 4. Hypertension. Adjust medications as deemed appropriate - Hold JANIE-Is/ARBs until renal function stabilizes Subjective Date patient seen: May 22, 2019 Time patient seen: 12:08 ROS Limited/Unobtainable: No Allergies: Coded Allergies: No Known Allergies (Unverified , 04/21/14) Subjective Patient llying flat in no distress Objective Last 24 Hour Vital Signs Date Time Temp Pulse Resp B/P (MAP) Pulse Ox O2 Delivery O2 Flow Rate FiO2 05/22/19 11:31 98.4 84 20 142/84 (103) 97 05/22/19 11:26 84 16 99 Room Air 21 81 16 94 05/22/19 09:15 95 133/77 05/22/19 09:14 95 133/77 05/22/19 08:00 Room Air 05/22/19 08:00 97.9 95 18 133/77 (95) 96 05/22/19 07:39 88 18 100 Room Air 21 84 18 95 05/22/19 07:37 89 05/22/19 04:00 97.8 92 18 134/80 (98) 96 05/22/19 04:00 Room Air 05/22/19 03:43 83 05/22/19 00:00 98.4 85 20 132/78 (96) 95 05/22/19 00:00 Room Air 05/21/19 23:35 89 05/21/19 20:00 Room Air 05/21/19 20:00 98.9 93 20 129/70 (89) 94 05/21/19 19:42 98 18 100 Room Air 96 18 96 05/21/19 19:22 94 05/21/19 16:45 86 18 100 Room Air 85 18 97 05/21/19 16:00 Room Air 05/21/19 16:00 98.3 84 21 152/71 (98) 97 05/21/19 16:00 82 05/21/19 14:32 85 18 97 Room Air Intake and Output 05/21/19 05/22/19 19:00 07:00 Intake Total 560 ml 240 ml Output Total 900 ml 200 ml Balance -340 ml 40 ml Intake Oral 360 ml 240 ml IV Total 200 ml Output Urine Total 900 ml 200 ml Laboratory Tests 05/21/19 19:58: Troponin I 0.186H 05/22/19 04:00: Troponin I 0.187H, White Blood Count 4.6L, Red Blood Count 2.76L, Hemoglobin 8.3L, Hematocrit 23.3L, Mean Corpuscular Volume 84, Mean Corpuscular Hemoglobin 30.0, Mean Corpuscular Hemoglobin Concent 35.6, Red Cell Distribution Width 12.5 , Platelet Count 172, Mean Platelet Volume 6.9, Neutrophils (%) (Auto) 71.9, Lymphocytes (%) (Auto) 17.6L, Monocytes (%) (Auto) 9.4, Eosinophils (%) (Auto) 0.6, Basophils (%) (Auto) 0.5, Sodium Level 141, Potassium Level 3.7, Chloride Level 107, Carbon Dioxide Level 22, Anion Gap 12, Blood Urea Nitrogen 47H, Creatinine 4.2H, Estimat Glomerular Filtration Rate 17.7, Glucose Level 121H, Hemoglobin A1c 5.6, Calcium Level 7.6L, Pro-B-Type Natriuretic Peptide > 54215F Height (Feet): 5 Height (Inches): 8.00 Weight (Pounds): 160 General Appearance: no apparent distress, alert EENT: normal ENT inspection Neck: normal alignment, supple Cardiovascular: normal rate, regular rhythm Respiratory/Chest: rhonchi - bilaterally Abdomen: non tender, soft Edema: 1+ Arm (L), 1+ Arm (R), 1+ Leg (L), 1+ Leg (R), 1+ Pedal (L), 1+ Pedal ( R), 1+ Generalized Julio C Madrigal MD May 22, 2019 12:10
--- NOTE | 2019-05-22 13:53 | CDS Physician Query ---
Clarification is required for compliance, coding accuracy, and to reflect severity of illness for this patient Dear Luís Velásquez MD Date: 05/22/2019 Oil Well Driller/CDS Name: Surya Salomon Assessment/Plan Assessment/Plan 1. Non-ST elevation myocardial infarction, likely type 2. All troponins less than 0.2. His EKG does not show any active ischemic changes. Elevated troponin likely due to the patient's renal failure with the creatinine of 3.5. Continue aspirin, Toprol 25 daily and Lipitor 2. Congestive heart failure due to diastolic dysfunction. EF 50%. On Lasix 40 mg IV b.i.d. "Heart Failure / CHF" documented in Consultation notes BNP: [id number] Tx: IV FUROSEMIDE Please Clarify: Acuity [] Acute [] Chronic [] Acute on Chronic Present on Admission: [] Yes [] No [] Clinically Undetermined Physician signature Date Please also document in your Progress Notes and/or Discharge Summary and indicate if the condition was present on admission. SHELLY
--- NOTE | 2019-05-22 15:26 | NUR ---
CAR WORKEREDUCATION SPEC SI; DYSPNEA,ELEVATED TROPONIN T. 98.4 HR 84 RR 20 B/P 142/84 IS: ASA PO TOPROL PO ALB HHN STEP DOWN STATUS
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
--- NOTE | 2019-05-22 15:58 | NUR ---
*-* INSURANCE *-* ALL CLINICALS AND REVIEWS HAVE BEEN FAXED TO: [facility] Ref# [id number] fax# [phone] [facility] Ref# [id number] CM: [employer] # [phone] ext [phone]
[2019-05-22 16:00] VITALS: BP 133/82
--- NOTE | 2019-05-22 16:43 | General Progress Note ---
Assessment/Plan Assessment/Plan: IMPRESSION: Chest pain, congestive heart failure, longstanding history of smoking, possible COPD, hypertension, chronic pain syndrome, diabetes, and hyperlipidemia. PLAN continue same respiratory care monitor cardiology follow up and clearance impression, plan, and exam edited and reviewed in detail care discussed with RN Subjective Allergies: Coded Allergies: No Known Allergies (Unverified , 04/21/14) Subjective care noted still with some cough and congestion Objective Last 24 Hour Vital Signs Date Time Temp Pulse Resp B/P (MAP) Pulse Ox O2 Delivery O2 Flow Rate FiO2 05/22/19 16:00 Room Air 05/22/19 15:32 92 05/22/19 15:23 106 18 100 Room Air 21 103 16 96 05/22/19 12:00 Room Air 05/22/19 11:31 98.4 84 20 142/84 (103) 97 05/22/19 11:26 84 16 99 Room Air 21 81 16 94 05/22/19 11:25 84 05/22/19 09:15 95 133/77 05/22/19 09:14 95 133/77 05/22/19 08:00 Room Air 05/22/19 08:00 97.9 95 18 133/77 (95) 96 05/22/19 07:39 88 18 100 Room Air 21 84 18 95 05/22/19 07:37 89 05/22/19 04:00 97.8 92 18 134/80 (98) 96 05/22/19 04:00 Room Air 05/22/19 03:43 83 05/22/19 00:00 98.4 85 20 132/78 (96) 95 05/22/19 00:00 Room Air 05/21/19 23:35 89 05/21/19 20:00 Room Air 05/21/19 20:00 98.9 93 20 129/70 (89) 94 05/21/19 19:42 98 18 100 Room Air 96 18 96 05/21/19 19:22 94 05/21/19 16:45 86 18 100 Room Air 85 18 97 Intake and Output 05/21/19 05/22/19 18:59 06:59 Intake Total 560 ml 240 ml Output Total 900 ml 200 ml Balance -340 ml 40 ml Intake Oral 360 ml 240 ml IV Total 200 ml Output Urine Total 900 ml 200 ml Laboratory Tests 05/21/19 19:58: Troponin I 0.186H 2/7/20 04:00: Troponin I 0.187H, White Blood Count 4.6L, Red Blood Count 2.76L, Hemoglobin 8.3L, Hematocrit 23.3L, Mean Corpuscular Volume 84, Mean Corpuscular Hemoglobin 30.0, Mean Corpuscular Hemoglobin Concent 35.6, Red Cell Distribution Width 12.5 , Platelet Count 172, Mean Platelet Volume 6.9, Neutrophils (%) (Auto) 71.9, Lymphocytes (%) (Auto) 17.6L, Monocytes (%) (Auto) 9.4, Eosinophils (%) (Auto) 0.6, Basophils (%) (Auto) 0.5, Sodium Level 141, Potassium Level 3.7, Chloride Level 107, Carbon Dioxide Level 22, Anion Gap 12, Blood Urea Nitrogen 47H, Creatinine 4.2H, Estimat Glomerular Filtration Rate 17.7, Glucose Level 121H, Hemoglobin A1c 5.6, Calcium Level 7.6L, Pro-B-Type Natriuretic Peptide > 34597O Height (Feet): 5 Height (Inches): 8.00 Weight (Pounds): 160 Objective GENERAL: The patient is a well-developed male without significant distress. HEENT: Negative. NECK: Supple. LUNGS: Notable for reduced breath sounds. Occasional wheezes. CARDIAC: S1 and S2. Regular rate and rhythm. ABDOMEN: Soft, nontender. EXTREMITIES: No edema. Konstantin Gentile MD May 22, 2019 16:43
[2019-05-22] MEDS ORDERED: NS 275ml ONE (18:45)
--- NOTE | 2019-05-22 18:59 | NUR ---
HAND-OFF: Report given to SULY Haas. Patient in stable condition.
--- NOTE | 2019-05-22 19:04 | NUR ---
NURSE NOTES: Received report from SULY Mcintosh. Pt. observed resting in bed; awake and alert x4. Pt denies skin alterations. Pt is on tele monitor with a HR of 95 noted, no signs of cardiac distress noted. Pt remains on RA with no s/sx of respiratory distress noted. Pt admits to SOB with exertion; lungs clear bilaterally upon auscultation. O2 saturation of 93% noted at this time. Urinal present at bedside, pt encouraged to use urinal and call light for assistance despite being ambulatory. RFA 22G IV catheter noted which remains asymptomatic, intact and patent. Pt denies pain at this time. Pt remains resting in bed; bed remains in lowest position with safety wheels engaged, call light within easy reach, bed alarm on, side rails up x3 and bed alarm activated. Will continue plan of care. Will continue to monitor.
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
--- NOTE | 2019-05-22 19:50 | NUR ---
NURSE NOTES: Orders for Ambien 5mg qHS PRN insomnia and Tylenol 650mg Q4hr PRN mild pain acquired. Will continue to monitor.
[2019-05-22 20:00] VITALS: BP 149/81
--- NOTE | 2019-05-22 20:03 | NUR ---
NURSE NOTES: Pt provided with materials for oral care and bed bath. Pt needed minimal assistance with evening care. Pt however refuses linen change and clean gown at this time. Pt remains resting in bed; bed remains in lowest position with safety wheels engaged, call light within easy reach, bed alarm on, side rails up x3 and bed alarm activated. Will continue plan of care. Will continue to monitor.
[2019-05-22] MEDS ORDERED: Zolpidem 5mg tab ORAL PRN (20:15)
--- NOTE | 2019-05-22 20:17 | NUR ---
NURSE NOTES: Pt requests Ambien for insomnia; pt is fatigued from restless sleep last night. Pt educated on medication and agrees to use call light for assistance. Pt provided Ambien as requested, no adverse effects noted. Pt remains resting in bed; bed remains in lowest position with safety wheels engaged, call light within easy reach, bed alarm on, side rails up x3 and bed alarm activated. Will continue plan of care. Will continue to monitor. Addendum: 05/22/19 at 2256 by ELINA PARKINSON RN Pt states pain is currently tolerable and declines Tylenol at this time. Pt educated on pain management. Will continue to monitor.
[2019-05-23] MEDS: Albuterol/Ipratropium 3ml neb HHN SCH ×6 (02:58→23:00)
[2019-05-23 04:00] VITALS: BP 144/91
--- NOTE | 2019-05-23 06:09 | NUR ---
NURSE NOTES: Negotiated with patient to AC blood glucose with AM lab work. Pt is fatigued and requesting to rest. BG results 79 which is WNL, pt drank 60mL of juice.
[2019-05-23 06:30] LABS: ANION GAP 12 mmol/L (5-15); BLOOD UREA NITROGEN 49 mg/dL (7-18); CALCIUM 7.6 MG/DL (8.5-10.1); CARBON DIOXIDE 22 MMOL/L (21-32); CHLORIDE 110 MMOL/L (98-107); POTASSIUM 3.9 MMOL/L (3.5-5.1); SODIUM 144 MMOL/L (136-145)
--- NOTE | 2019-05-23 07:27 | NUR ---
HAND-OFF: Report given to SULY Carter. Pt remains stable at this time.
--- NOTE | 2019-05-23 07:30 | NUR ---
NURSE NOTES: Received pt from SULY Haas. Patient is aox3 and awake in bed. Patient shows SR on the surveillance system monitor. Patient is on room air and tolerating well. Bed is locked, alarmed and in the lowest position. Side rails x3, and call light is within reach. Will continue to monitor.
[2019-05-23 08:00] VITALS: BP 150/96
[2019-05-23] MEDS: Aspirin Baby 81mg ORAL SCH (08:19)
[2019-05-23] MEDS: Metoprolol Succinate XL 25mg tab ORAL SCH (08:20)
[2019-05-23] MEDS: Heparin 5000 units/ml inj SUBQ SCH ×2 (08:22→21:14)
[2019-05-23 12:00] VITALS: BP 151/93
--- NOTE | 2019-05-23 12:43 | Nephrology Progress Note ---
Assessment/Plan Assessment/Plan: A/P 1. DANYA on CKD 3 stage IIIB/4. - NSAIDS stopped - on lasix for CRS. Cr down to 4 - monitor and track down baseline renal function from [facility] 2. Chronic obstructive pulmonary disease exacerbation. - per Pulm 3. Congestive heart failure. Continue Lasix therapy. Cr down to 4 4. Hypertension. Adjust medications as deemed appropriate - Hold JANIE-Is/ARBs until renal function stabilizes Subjective Date patient seen: May 23, 2019 Time patient seen: 12:42 ROS Limited/Unobtainable: No Allergies: Coded Allergies: No Known Allergies (Unverified , 04/21/14) Subjective Patient up in bed at bedside Objective Last 24 Hour Vital Signs Date Time Temp Pulse Resp B/P (MAP) Pulse Ox O2 Delivery O2 Flow Rate FiO2 05/23/19 12:00 Room Air 05/23/19 12:00 98.1 86 20 151/93 (112) 99 05/23/19 11:39 91 20 99 Room Air 21 93 20 96 05/23/19 08:20 92 150/96 05/23/19 08:20 92 150/96 05/23/19 08:12 79 05/23/19 08:08 87 20 99 Room Air 21 83 20 95 05/23/19 08:00 97.7 92 20 150/96 (114) 97 05/23/19 08:00 Room Air 05/23/19 04:00 Room Air 05/23/19 04:00 98.2 85 20 144/91 (108) 96 05/23/19 04:00 88 05/23/19 00:00 Room Air 05/22/19 23:42 87 05/22/19 20:00 Room Air 05/22/19 20:00 94 05/22/19 20:00 97.3 93 22 149/81 (103) 97 05/22/19 18:44 92 18 100 Room Air 21 90 18 97 05/22/19 16:00 Room Air 05/22/19 16:00 97.9 91 20 133/82 (99) 97 05/22/19 15:32 92 05/22/19 15:23 106 18 100 Room Air 21 103 16 96 Intake and Output 05/22/19 05/23/19 19:00 07:00 Intake Total 360 ml 120 ml Output Total 800 ml 250 ml Balance -440 ml -130 ml Intake Oral 360 ml 120 ml Output Urine Total 800 ml 250 ml Laboratory Tests 05/23/19 05:10: Sodium Level 144, Potassium Level 3.9, Chloride Level 110H, Carbon Dioxide Level 22, Anion Gap 12, Blood Urea Nitrogen 49H, Creatinine 4.0H, Estimat Glomerular Filtration Rate 18.7, Glucose Level 116H, Calcium Level 7.6L Height (Feet): 5 Height (Inches): 8.00 Weight (Pounds): 160 General Appearance: no apparent distress EENT: normal ENT inspection Neck: normal alignment, supple Cardiovascular: normal rate, regular rhythm Respiratory/Chest: rhonchi - bilaterally Abdomen: non tender, soft Edema: no edema noted Arm (L), no edema noted Arm (R), no edema noted Leg (L), no edema noted Leg (R), no edema noted Pedal (L), no edema noted Pedal (R), no edema noted Generalized Julio C Madrigal MD May 23, 2019 12:43
[2019-05-23] MEDS ORDERED: NS 275ml ONE (13:07)
--- NOTE | 2019-05-23 14:03 | Cardiac Electrophysiology PN ---
Assessment/Plan Assessment/Plan 1. Non-ST elevation myocardial infarction, likely type 2. All troponins less than 0.2. His EKG does not show any active ischemic changes. Elevated troponin likely due to the patient's renal failure with the creatinine of 3.5. Continue aspirin, Toprol 25 daily and Lipitor 2. Congestive heart failure due to diastolic dysfunction and volume overload due to renal failure EF 50%. On iv Lasix 3. HTN On Norvasc 5 mg daily, Lasix 40 iv bid and Toprol 25 daily. 4. Acute Renal failure. Labs at the [facility] in 2015, his creatinine was 0.8 and currently is at 4.0. FU Dr. Madrigal 5. History of substance abuse with cocaine based on the labs in 2014. Currently, his urine toxicology screen is negative. DW RN Subjective Subjective No CP. Troponin level coming down. Remained in SR Objective Last 24 Hour Vital Signs Date Time Temp Pulse Resp B/P (MAP) Pulse Ox O2 Delivery O2 Flow Rate FiO2 05/23/19 12:00 86 05/23/19 12:00 Room Air 05/23/19 12:00 98.1 86 20 151/93 (112) 99 05/23/19 11:39 91 20 99 Room Air 21 93 20 96 05/23/19 08:20 92 150/96 05/23/19 08:20 92 150/96 05/23/19 08:12 79 05/23/19 08:08 87 20 99 Room Air 21 83 20 95 05/23/19 08:00 97.7 92 20 150/96 (114) 97 05/23/19 08:00 Room Air 05/23/19 04:00 Room Air 05/23/19 04:00 98.2 85 20 144/91 (108) 96 05/23/19 04:00 88 05/23/19 00:00 Room Air 05/22/19 23:42 87 05/22/19 20:00 Room Air 05/22/19 20:00 94 05/22/19 20:00 97.3 93 22 149/81 (103) 97 05/22/19 18:44 92 18 100 Room Air 21 90 18 97 05/22/19 16:00 Room Air 05/22/19 16:00 97.9 91 20 133/82 (99) 97 05/22/19 15:32 92 05/22/19 15:23 106 18 100 Room Air 21 103 16 96 Intake and Output 05/22/19 05/23/19 19:00 07:00 Intake Total 360 ml 120 ml Output Total 800 ml 250 ml Balance -440 ml -130 ml Intake Oral 360 ml 120 ml Output Urine Total 800 ml 250 ml Laboratory Tests Test 05/23/19 05:10 Sodium Level 144 MMOL/L (136-145) Potassium Level 3.9 MMOL/L (3.5-5.1) Chloride Level 110 MMOL/L (98-107) H Carbon Dioxide Level 22 MMOL/L (21-32) Anion Gap 12 mmol/L (5-15) Blood Urea Nitrogen 49 mg/dL (7-18) H Creatinine 4.0 MG/DL (0.55-1.30) H Estimat Glomerular Filtration Rate 18.7 mL/min (>60) Glucose Level 116 MG/DL (74-106) H Calcium Level 7.6 MG/DL (8.5-10.1) L Microbiology Date/Time Source Procedure Growth Status 05/21/19 06:30 Nasal Nares MRSA Culture - Final NO METHICILLIN RESISTANT STAPH AUREUS... Complete 05/21/19 06:30 Rectum - Final NO CARBAPENEM-RESISTANT ENTEROBACTERI... Complete 05/21/19 06:30 Rectum VRE Culture - Final NO VANCOMYCIN RESISTANT ENTEROCOCCUS ... Complete Objective HEAD AND NECK: Shows positive JVD. LUNGS: Decreased breath sounds. CARDIOVASCULAR: Shows regular S1 and S2 with no gallop. ABDOMEN: Soft. EXTREMITIES: 2+ pitting edema. Luís Perez MD May 23, 2019 14:03
--- NOTE | 2019-05-23 14:47 | Pulmonology Progress Note ---
Assessment/Plan Assessment/Plan Progress Note Assessment/Plan: IMPRESSION: Patient admitted with chest pain, congestive heart failure, longstanding history of smoking, possible COPD, hypertension, chronic pain syndrome, diabetes, and hyperlipidemia. PLAN continue same management respiratory care monitor cardiology follow up and clearance impression, plan, and exam edited and reviewed in detail care discussed with RN Subjective Allergies: Coded Allergies: No Known Allergies (Unverified , 04/21/14) Subjective care noted still with some cough and congestion Objective Vital Signs Noted Laboratory Tests 05/21/19 19:58: Troponin I 0.186H 05/22/19 04:00: Troponin I 0.187H, White Blood Count 4.6L, Red Blood Count 2.76L, Hemoglobin 8.3L, Hematocrit 23.3L, Mean Corpuscular Volume 84, Mean Corpuscular Hemoglobin 30.0, Mean Corpuscular Hemoglobin Concent 35.6, Red Cell Distribution Width 12.5 , Platelet Count 172, Mean Platelet Volume 6.9, Neutrophils (%) (Auto) 71.9, Lymphocytes (%) (Auto) 17.6L, Monocytes (%) (Auto) 9.4, Eosinophils (%) (Auto) 0.6, Basophils (%) (Auto) 0.5, Sodium Level 141, Potassium Level 3.7, Chloride Level 107, Carbon Dioxide Level 22, Anion Gap 12, Blood Urea Nitrogen 47H, Creatinine 4.2H, Estimat Glomerular Filtration Rate 17.7, Glucose Level 121H, Hemoglobin A1c 5.6, Calcium Level 7.6L, Pro-B-Type Natriuretic Peptide > [id number] Height (Feet): 5 Height (Inches): 8.00 Weight (Pounds): 160 Objective GENERAL: The patient is a well-developed male without significant distress. HEENT: Negative. NECK: Supple. LUNGS: Notable for reduced breath sounds. Occasional wheezes. CARDIAC: S1 and S2. Regular rate and rhythm. ABDOMEN: Soft, nontender. EXTREMITIES: No edema. Subjective ROS Limited/Unobtainable: No Allergies: Coded Allergies: No Known Allergies (Unverified , 04/21/14) Objective Last 24 Hour Vital Signs Date Time Temp Pulse Resp B/P (MAP) Pulse Ox O2 Delivery O2 Flow Rate FiO2 05/23/19 12:00 86 05/23/19 12:00 Room Air 05/23/19 12:00 98.1 86 20 151/93 (112) 99 05/23/19 11:39 91 20 99 Room Air 21 93 20 96 05/23/19 08:20 92 150/96 05/23/19 08:20 92 150/96 05/23/19 08:12 79 05/23/19 08:08 87 20 99 Room Air 21 83 20 95 05/23/19 08:00 97.7 92 20 150/96 (114) 97 05/23/19 08:00 Room Air 05/23/19 04:00 Room Air 05/23/19 04:00 98.2 85 20 144/91 (108) 96 05/23/19 04:00 88 05/23/19 00:00 Room Air 05/22/19 23:42 87 05/22/19 20:00 Room Air 05/22/19 20:00 94 05/22/19 20:00 97.3 93 22 149/81 (103) 97 05/22/19 18:44 92 18 100 Room Air 21 90 18 97 05/22/19 16:00 Room Air 05/22/19 16:00 97.9 91 20 133/82 (99) 97 05/22/19 15:32 92 05/22/19 15:23 106 18 100 Room Air 21 103 16 96 Intake and Output 05/22/19 05/23/19 19:00 07:00 Intake Total 360 ml 120 ml Output Total 800 ml 250 ml Balance -440 ml -130 ml Intake Oral 360 ml 120 ml Output Urine Total 800 ml 250 ml Microbiology Date/Time Source Procedure Growth Status 05/21/19 06:30 Nasal Nares MRSA Culture - Final NO METHICILLIN RESISTANT STAPH AUREUS... Complete 05/21/19 06:30 Rectum - Final NO CARBAPENEM-RESISTANT ENTEROBACTERI... Complete 05/21/19 06:30 Rectum VRE Culture - Final NO VANCOMYCIN RESISTANT ENTEROCOCCUS ... Complete Laboratory Tests 05/23/19 05:10: Sodium Level 144, Potassium Level 3.9, Chloride Level 110H, Carbon Dioxide Level 22, Anion Gap 12, Blood Urea Nitrogen 49H, Creatinine 4.0H, Estimat Glomerular Filtration Rate 18.7, Glucose Level 116H, Calcium Level 7.6L Current Medications Medications (Trade) Dose Ordered Sig/Sade Route PRN Reason Start Time Stop Time Status Last Admin Dose Admin Acetaminophen (Tylenol) 650 mg Q4H PRN ORAL Mild Pain/Temp > 100.5 05/22/19 20:15 06/21/19 20:14 Albuterol/ Ipratropium (Albuterol/ Ipratropium) 3 ml Q4HRT HHN 05/21/19 11:00 05/26/19 10:59 05/23/19 11:39 Amlodipine Besylate (Norvasc) 5 mg DAILY ORAL 05/22/19 09:00 06/21/19 08:59 05/23/19 08:20 Aspirin (ASA) 81 mg DAILY ORAL 05/22/19 09:00 06/21/19 08:59 05/23/19 08:19 Atorvastatin Calcium (Lipitor) 10 mg BEDTIME ORAL 05/21/19 21:00 06/20/19 20:59 05/22/19 20:17 Dextrose (Dextrose 50%) 25 ml Q30M PRN IV Hypoglycemia 05/21/19 15:15 06/20/19 15:14 Dextrose (Dextrose 50%) 50 ml Q30M PRN IV Hypoglycemia 05/21/19 15:15 06/20/19 15:14 Furosemide (Lasix) 40 mg EVERY 12 HOURS IV 05/21/19 21:00 06/20/19 20:59 05/23/19 08:19 Gabapentin (Neurontin) 300 mg THREE TIMES A DAY ORAL 05/21/19 18:00 06/20/19 17:59 05/23/19 13:00 Heparin Sodium (Porcine) (Heparin 5000 units/ml) 5,000 units EVERY 12 HOURS SUBQ 05/21/19 21:00 06/20/19 20:59 05/23/19 08:22 Metoprolol Succinate (Toprol XL) 25 mg DAILY ORAL 05/22/19 09:00 06/21/19 08:59 05/23/19 08:20 Zolpidem Tartrate (Ambien) 5 mg HSPRN PRN ORAL Insomnia 05/22/19 20:15 05/29/19 20:14 05/22/19 20:17 Jamie Cade MD May 23, 2019 14:47
[2019-05-23 15:53] VITALS: BP 136/77
--- NOTE | 2019-05-23 18:54 | NUR ---
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
--- NOTE | 2019-05-23 19:10 | NUR ---
NURSE NOTES: Pt report received from PATEL TUBBS. pt remains stable. pt is alert and oriented times 3, able to responds to commands. 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 pt is on RA, able to sat at 100%. no signs symptoms of resp distress. pt bed is low, locked, armed, call light within reach, bed rails up times 3. will follow plan of care.
--- NOTE | 2019-05-23 19:15 | NUR ---
HAND-OFF: Report given to SULY Bar. Patient in stable condition.
[2019-05-23 20:00] VITALS: BP 138/85
[2019-05-24] VITALS: BP 145/86
[2019-05-24] MEDS: Albuterol/Ipratropium 3ml neb HHN SCH ×6 (03:43→23:00)
[2019-05-24 04:00] VITALS: BP 140/82
--- NOTE | 2019-05-24 07:01 | NUR ---
HAND-OFF: Report given to Yosvany Acevedo DAY shift RN. Pt remains stable.
--- NOTE | 2019-05-24 07:28 | NUR ---
NURSE NOTES: Received report form SULY Arana. Patient is sleeping in bed, in stable condition. No s/sx of SOB, breathing is even and unlabored. Bed is in lowest position, brakes engaged. Call light is kept within easy reach. Will continue to monitor patient.
[2019-05-24 08:00] VITALS: BP 134/84
[2019-05-24] MEDS: Aspirin Baby 81mg ORAL SCH (08:28)
[2019-05-24] MEDS: Metoprolol Succinate XL 25mg tab ORAL SCH (08:28)
[2019-05-24] MEDS: Heparin 5000 units/ml inj SUBQ SCH ×2 (08:29→20:58)
--- NOTE | 2019-05-24 11:11 | NUR ---
HAND-OFF: Report given to SULY Augustine.
--- NOTE | 2019-05-24 11:15 | NUR ---
NURSE NOTES: Received report SULY Bar. The patient is resting on the bed without acute distress or shortness of breath. The patient's bed in the lowest position, call light in reach, and fall and aspiration precaution reinforced. IV site intact and patent. Dr. Madrigal at the bedside assessed the patient and notified abnormal BUN and Cr. Will continue plan of care.
[2019-05-24 12:00] VITALS: BP 140/70
--- NOTE | 2019-05-24 12:58 | Nephrology Progress Note ---
Assessment/Plan Assessment/Plan: A/P 1. DANYA on CKD 3 stage IIIB/4. - NSAIDS stopped - on lasix for CRS. Cr down to 4. AM LABS pending 2. Chronic obstructive pulmonary disease exacerbation. - per Pulm 3. Congestive heart failure. Continue Lasix therapy. Cr down to 4 - AM LABS PENDING 4. Hypertension. Adjust medications as deemed appropriate - Hold JANIE-Is/ARBs until renal function stabilizes Subjective Date patient seen: May 24, 2019 Time patient seen: 12:55 ROS Limited/Unobtainable: No Allergies: Coded Allergies: No Known Allergies (Unverified , 04/21/14) Subjective Patient breathing and feeling better Objective Last 24 Hour Vital Signs Date Time Temp Pulse Resp B/P (MAP) Pulse Ox O2 Delivery O2 Flow Rate FiO2 05/24/19 12:00 98.6 76 18 140/70 (93) 97 05/24/19 10:56 89 20 99 Room Air 21 86 20 98 05/24/19 08:28 84 134/84 05/24/19 08:27 84 134/84 05/24/19 08:00 98.2 84 20 134/84 (101) 98 05/24/19 08:00 Room Air 05/24/19 08:00 95 05/24/19 07:22 78 16 99 Room Air 21 75 15 97 05/24/19 04:00 Room Air 05/24/19 04:00 77 05/24/19 04:00 98.5 80 20 140/82 (101) 99 05/24/19 03:53 100 18 98 Room Air 21 97 18 98 05/24/19 00:00 Room Air 05/24/19 00:00 78 05/24/19 00:00 98.3 83 20 145/86 (105) 100 05/23/19 20:00 Room Air 05/23/19 20:00 98.2 87 20 138/85 (102) 99 05/23/19 20:00 88 05/23/19 19:27 83 18 99 Room Air 21 88 18 96 05/23/19 16:00 98 05/23/19 15:53 Room Air 05/23/19 15:53 98.2 77 20 136/77 (96) 98 05/23/19 15:40 85 20 98 Room Air 21 82 20 95 Intake and Output 05/23/19 05/24/19 19:00 07:00 Intake Total 360 ml Output Total 600 ml Balance -240 ml Intake Oral 360 ml Output Urine Total 600 ml Height (Feet): 5 Height (Inches): 8.00 Weight (Pounds): 175 General Appearance: no apparent distress, alert EENT: normal ENT inspection Neck: normal alignment, supple Cardiovascular: regular rhythm Respiratory/Chest: lungs clear, normal breath sounds Abdomen: non tender, soft Edema: no edema noted Arm (L), no edema noted Arm (R), no edema noted Leg (L), no edema noted Leg (R), no edema noted Pedal (L), no edema noted Pedal (R), no edema noted Generalized Julio C Madrigal MD May 24, 2019 12:58
[2019-05-24 13:26] LABS: ANION GAP 12 mmol/L (5-15); BLOOD UREA NITROGEN 53 mg/dL (7-18); CALCIUM 8.1 MG/DL (8.5-10.1); CARBON DIOXIDE 25 MMOL/L (21-32); CHLORIDE 104 MMOL/L (98-107); CREATININE 3.8 MG/DL (0.55-1.30); POTASSIUM 3.5 MMOL/L (3.5-5.1); SODIUM 141 MMOL/L (136-145)
--- NOTE | 2019-05-24 13:35 | NUR ---
NURSE NOTES: Notified Dr. Madrigal regarding elevated BUN and Cr that is resulted in today for stat BMP. No new order yet. Will continue plan of care.
[2019-05-24 16:00] VITALS: BP 132/88
--- NOTE | 2019-05-24 18:00 | NUR ---
NURSE NOTES: The patient is resting on the bed without acute distress or shortness of breath. Will continue plan of care.
--- NOTE | 2019-05-24 19:15 | NUR ---
HAND-OFF: Report given to SULY Gray. The patient is resting on the bed without acute distress or shortness of breath. The patient's bed in the lowest position, call light in reach, and fall and aspiration precaution reinforced. IV site intact and patent. Endorsed plan of care.
--- NOTE | 2019-05-24 19:20 | NUR ---
NURSE NOTES: Report received from SULY Yee. Observed pt sleeping in the bed, calm and comfortable. SR on monitoring engineer. On room air with no sob. No acute distress noted at this time. IV on R FA 22G, SL. Bed in the lowest position. Side rails up x3. Will continue to monitor.
[2019-05-24 20:00] VITALS: BP 140/89
--- NOTE | 2019-05-24 20:51 | Pulmonology Progress Note ---
Assessment/Plan Assessment/Plan Progress Note Assessment/Plan: IMPRESSION: Patient admitted with chest pain, congestive heart failure, longstanding history of smoking, possible COPD, hypertension, chronic pain syndrome, diabetes, and hyperlipidemia. PLAN continue same management respiratory care monitor cardiology follow up and clearance impression, plan, and exam edited and reviewed in detail care discussed with RN Allergies: Coded Allergies: No Known Allergies Subjective care noted denies SOB Objective Vital Signs Noted Laboratory Tests Noted Height (Feet): 5 Height (Inches): 8.00 Weight (Pounds): 160 Objective GENERAL: The patient is a well-developed male without significant distress. HEENT: Negative. NECK: Supple. LUNGS: Notable for reduced breath sounds. Occasional wheezes. CARDIAC: S1 and S2. Regular rate and rhythm. ABDOMEN: Soft, nontender. EXTREMITIES: No edema. Subjective ROS Limited/Unobtainable: No Allergies: Coded Allergies: No Known Allergies (Unverified , 04/21/14) Objective Last 24 Hour Vital Signs Date Time Temp Pulse Resp B/P (MAP) Pulse Ox O2 Delivery O2 Flow Rate FiO2 05/24/19 19:39 89 18 98 Room Air 21 88 18 97 05/24/19 16:00 98.3 81 18 132/88 (103) 97 05/24/19 16:00 85 05/24/19 16:00 Room Air 05/24/19 14:30 81 16 98 Room Air 21 80 16 97 05/24/19 12:00 Room Air 05/24/19 12:00 77 05/24/19 12:00 98.6 76 18 140/70 (93) 97 05/24/19 10:56 89 20 99 Room Air 21 86 20 98 05/24/19 08:28 84 134/84 05/24/19 08:27 84 134/84 05/24/19 08:00 98.2 84 20 134/84 (101) 98 05/24/19 08:00 Room Air 05/24/19 08:00 95 05/24/19 07:22 78 16 99 Room Air 21 75 15 97 05/24/19 04:00 Room Air 05/24/19 04:00 77 05/24/19 04:00 98.5 80 20 140/82 (101) 99 05/24/19 03:53 100 18 98 Room Air 21 97 18 98 05/24/19 00:00 Room Air 05/24/19 00:00 78 05/24/19 00:00 98.3 83 20 145/86 (105) 100 Intake and Output 05/23/19 05/24/19 19:00 07:00 Intake Total 360 ml Output Total 600 ml Balance -240 ml Intake Oral 360 ml Output Urine Total 600 ml Laboratory Tests 05/24/19 13:10: Sodium Level 141, Potassium Level 3.5, Chloride Level 104, Carbon Dioxide Level 25, Anion Gap 12, Blood Urea Nitrogen 53H, Creatinine 3.8H, Estimat Glomerular Filtration Rate 19.9, Glucose Level 107H, Calcium Level 8.1L Current Medications Medications (Trade) Dose Ordered Sig/Sade Route PRN Reason Start Time Stop Time Status Last Admin Dose Admin Acetaminophen (Tylenol) 650 mg Q4H PRN ORAL Mild Pain/Temp > 100.5 05/22/19 20:15 06/21/19 20:14 05/24/19 08:28 Albuterol/ Ipratropium (Albuterol/ Ipratropium) 3 ml Q4HRT HHN 05/21/19 11:00 05/26/19 10:59 05/24/19 19:39 Amlodipine Besylate (Norvasc) 5 mg DAILY ORAL 05/22/19 09:00 06/21/19 08:59 05/24/19 08:27 Aspirin (ASA) 81 mg DAILY ORAL 05/22/19 09:00 06/21/19 08:59 05/24/19 08:28 Atorvastatin Calcium (Lipitor) 10 mg BEDTIME ORAL 05/21/19 21:00 06/20/19 20:59 05/23/19 21:12 Dextrose (Dextrose 50%) 25 ml Q30M PRN IV Hypoglycemia 05/21/19 15:15 06/20/19 15:14 Dextrose (Dextrose 50%) 50 ml Q30M PRN IV Hypoglycemia 05/21/19 15:15 06/20/19 15:14 Furosemide (Lasix) 40 mg EVERY 12 HOURS IV 05/21/19 21:00 06/20/19 20:59 05/24/19 08:27 Gabapentin (Neurontin) 300 mg THREE TIMES A DAY ORAL 05/21/19 18:00 06/20/19 17:59 05/24/19 17:08 Heparin Sodium (Porcine) (Heparin 5000 units/ml) 5,000 units EVERY 12 HOURS SUBQ 05/21/19 21:00 06/20/19 20:59 05/24/19 08:29 Metoprolol Succinate (Toprol XL) 25 mg DAILY ORAL 05/22/19 09:00 06/21/19 08:59 05/24/19 08:28 Zolpidem Tartrate (Ambien) 5 mg HSPRN PRN ORAL Insomnia 05/22/19 20:15 05/29/19 20:14 05/22/19 20:17 Jamie Cade MD May 24, 2019 20:51
[2019-05-25] VITALS: BP 146/96
[2019-05-25] MEDS: Albuterol/Ipratropium 3ml neb HHN SCH ×3 (03:29→12:19)
[2019-05-25 04:00] VITALS: BP 131/79
[2019-05-25 04:58] LABS: ANION GAP 10 mmol/L (5-15); BLOOD UREA NITROGEN 54 mg/dL (7-18); CALCIUM 7.8 MG/DL (8.5-10.1); CARBON DIOXIDE 27 MMOL/L (21-32); CHLORIDE 106 MMOL/L (98-107); CREATININE 3.8 MG/DL (0.55-1.30); SODIUM 143 MMOL/L (136-145)
--- NOTE | 2019-05-25 07:30 | NUR ---
HAND-OFF: Report given to SULY Parks.
--- NOTE | 2019-05-25 07:31 | NUR ---
NURSE NOTES: Received patient in bed. Awake, verbal, alert, oriented x 4. Call light within reach. Bed in lowest position. Will continue plan of care.
[2019-05-25 08:00] VITALS: BP 138/88
--- NOTE | 2019-05-25 08:34 | General Progress Note ---
Assessment/Plan Assessment/Plan: IMPRESSION: Chest pain, congestive heart failure, longstanding history of smoking, possible COPD, hypertension, chronic pain syndrome, diabetes, and hyperlipidemia. CKD PLAN continue same respiratory care monitor on las dc planning impression, plan, and exam edited and reviewed in detail care discussed with RN Subjective Allergies: Coded Allergies: No Known Allergies (Unverified , 04/21/14) Subjective care noted still with some cough and congestion Objective Last 24 Hour Vital Signs Date Time Temp Pulse Resp B/P (MAP) Pulse Ox O2 Delivery O2 Flow Rate FiO2 05/25/19 08:00 98.4 84 20 138/88 (105) 100 05/25/19 04:00 98.2 82 18 131/79 (96) 98 05/25/19 04:00 85 05/25/19 03:29 86 18 99 Room Air 21 82 18 98 05/25/19 00:00 80 05/25/19 00:00 98.1 80 16 146/96 (113) 96 05/24/19 21:00 Room Air 05/24/19 20:00 87 05/24/19 20:00 98.8 79 16 140/89 (106) 95 05/24/19 19:39 89 18 98 Room Air 21 88 18 97 05/24/19 16:00 98.3 81 18 132/88 (103) 97 05/24/19 16:00 85 05/24/19 16:00 Room Air 05/24/19 14:30 81 16 98 Room Air 21 80 16 97 05/24/19 12:00 Room Air 05/24/19 12:00 77 05/24/19 12:00 98.6 76 18 140/70 (93) 97 05/24/19 10:56 89 20 99 Room Air 21 86 20 98 Intake and Output 05/24/19 05/25/19 19:00 07:00 Intake Total 1000 ml 480 ml Balance 1000 ml 480 ml Intake Oral 1000 ml 480 ml # Voids 6 2 Laboratory Tests 05/24/19 13:10: Sodium Level 141, Potassium Level 3.5, Chloride Level 104, Carbon Dioxide Level 25, Anion Gap 12, Blood Urea Nitrogen 53H, Creatinine 3.8H, Estimat Glomerular Filtration Rate 19.9, Glucose Level 107H, Calcium Level 8.1L 05/25/19 03:00: Sodium Level 143, Potassium Level 4.0, Chloride Level 106, Carbon Dioxide Level 27, Anion Gap 10, Blood Urea Nitrogen 54H, Creatinine 3.8H, Estimat Glomerular Filtration Rate 19.9, Glucose Level 104, Calcium Level 7.8L Height (Feet): 5 Height (Inches): 8.00 Weight (Pounds): 175 Objective GENERAL: The patient is a well-developed male without significant distress. HEENT: Negative. NECK: Supple. LUNGS: Notable for reduced breath sounds. Occasional wheezes. CARDIAC: S1 and S2. Regular rate and rhythm. ABDOMEN: Soft, nontender. EXTREMITIES: No edema. Konstantin Gentile MD May 25, 2019 08:34
[2019-05-25] MEDS: Metoprolol Succinate XL 25mg tab ORAL SCH (08:51)
[2019-05-25] MEDS: Aspirin Baby 81mg ORAL SCH (08:51)
[2019-05-25] MEDS: Heparin 5000 units/ml inj SUBQ SCH (08:54)
--- NOTE | 2019-05-25 08:58 | NUR ---
NURSE NOTES: Dr. Gentile at bedside.
--- NOTE | 2019-05-25 10:18 | Cardiac Electrophysiology PN ---
Assessment/Plan Assessment/Plan 1. Non-ST elevation myocardial infarction, likely type 2. All troponins less than 0.2. EKG does not show any active ischemic changes. Elevated troponin likely due to the patient's renal failure with the creatinine of 3.5. Continue aspirin, Toprol 25 daily and Lipitor 2. CHF due to diastolic dysfunction and volume overload due to renal failure EF 50%. On iv Lasix 3. HTN On Norvasc 5 mg daily, Lasix 40 iv bid and Toprol 25 daily. 4. Acute Renal failure. Labs at the [facility] in 2015, his creatinine was 0.8 and up to 4.0. FU Dr. Madrigal Now coming down to 3.5 5. History of substance abuse with cocaine based on the labs in 2014. Currently, his urine toxicology screen is negative. STACY RN Subjective Subjective No CP. Remained in SR . SOB improved Objective Last 24 Hour Vital Signs Date Time Temp Pulse Resp B/P (MAP) Pulse Ox O2 Delivery O2 Flow Rate FiO2 05/25/19 09:00 Room Air 05/25/19 08:51 84 138/88 05/25/19 08:51 84 138/88 05/25/19 08:44 89 18 99 Room Air 21 87 18 97 05/25/19 08:00 98.4 84 20 138/88 (105) 100 05/25/19 04:00 98.2 82 18 131/79 (96) 98 05/25/19 04:00 85 05/25/19 03:29 86 18 99 Room Air 21 82 18 98 05/25/19 00:00 80 05/25/19 00:00 98.1 80 16 146/96 (113) 96 05/24/19 21:00 Room Air 05/24/19 20:00 87 05/24/19 20:00 98.8 79 16 140/89 (106) 95 05/24/19 19:39 89 18 98 Room Air 21 88 18 97 05/24/19 16:00 98.3 81 18 132/88 (103) 97 05/24/19 16:00 85 05/24/19 16:00 Room Air 05/24/19 14:30 81 16 98 Room Air 21 80 16 97 05/24/19 12:00 Room Air 05/24/19 12:00 77 05/24/19 12:00 98.6 76 18 140/70 (93) 97 05/24/19 10:56 89 20 99 Room Air 21 86 20 98 Intake and Output 05/24/19 05/25/19 19:00 07:00 Intake Total 1000 ml 480 ml Balance 1000 ml 480 ml Intake Oral 1000 ml 480 ml # Voids 6 2 Laboratory Tests Test 05/24/19 13:10 05/25/19 03:00 Sodium Level 141 MMOL/L (136-145) 143 MMOL/L (136-145) Potassium Level 3.5 MMOL/L (3.5-5.1) 4.0 MMOL/L (3.5-5.1) Chloride Level 104 MMOL/L (98-107) 106 MMOL/L (98-107) Carbon Dioxide Level 25 MMOL/L (21-32) 27 MMOL/L (21-32) Anion Gap 12 mmol/L (5-15) 10 mmol/L (5-15) Blood Urea Nitrogen 53 mg/dL (7-18) H 54 mg/dL (7-18) H Creatinine 3.8 MG/DL (0.55-1.30) H 3.8 MG/DL (0.55-1.30) H Estimat Glomerular Filtration Rate 19.9 mL/min (>60) 19.9 mL/min (>60) Glucose Level 107 MG/DL (74-106) H 104 MG/DL (74-106) Calcium Level 8.1 MG/DL (8.5-10.1) L 7.8 MG/DL (8.5-10.1) L Objective HEAD AND NECK: Positive JVD. LUNGS: Decreased breath sounds. CARDIOVASCULAR: Regular S1 and S2 with no gallop. ABDOMEN: Soft. EXTREMITIES: 2+ pitting edema. Luís Perez MD May 25, 2019 10:18
[2019-05-25 12:00] VITALS: BP 137/90
--- NOTE | 2019-05-25 13:11 | NUR ---
Social Work This Sw met with patient regarding discharge planning (possible placement into Board and Care needed due to homelessness). Patient explains he plans to discharge to home with his friend, René Farfan ([phone]), requesting a taxi voucher to the following address: [facility] [address] [place] [address] Nursing informed. Patient declined any other housing and homeless resources at this time, stating he plans to seek his own apartment once he has more income. Patient remains independent with all ADLs, ambulation, alert/oriented x4. No other needs or concerns present at this time.
--- NOTE | 2019-05-25 16:30 | NUR ---
NURSE NOTES: Discharge patient to home. Paper prescription provided. Taxi voucher provided.
--- NOTE | 2019-05-26 11:40 | Discharge Summary ---
Discharge Summary Discharge Summary _ DATE OF ADMISSION: 05/21/2019 DATE OF DISCHARGE: 05/25/2019 DISCHARGED BY: Dr. Gentile REASON FOR ADMISSION: 58 years old male with past medical history of CHF, COPD, who was recently discharged from [facility] without any inhaler, presented with complaint of shortness of breath and wheezing. Blood pressure was elevated 173/98 , patient was tachycardic Laboratory work-up revealed evidence of renal failure with BUN 33, creatinine 3.5. Magnesium 1.3. Troponin elevated 0.146 , pro BNP 65745. Albumin 2.3. No leukocytosis, hemoglobin 11.1, hematocrit 30. Urine toxicology screen was negative. Urinalysis revealed no evidence of urinary tract infection , + 4 protein . EKG revealed sinus tachycardia with right bundle branch block. Chest x-ray demonstrated interstitial edema /CHF versus pneumonitis. In emergency department patient received aspirin , nitrate and 1 dose of metoprolol along with Lasix . Metoprolol repeated , blood pressure improved. Patient subsequently admitted to stepdown unit for further management. CONSULTANTS: wellness educator Dr. Cid supervisor electronic coils Dr.De Spring [facility] COURSE: Patient admitted to stepdown unit. Dumper followed. Serial troponin elevated but all less than 0.2. EKG did not reveal any acute ischemic changes. Elevated troponin was likely due to renal failure . Per wellness educator, patient had NSTEMI, likely type II. Patient was on antiplatelet therapy with aspirin, beta-ceht, and statin. Echocardiogram revealed preserved ejection fraction of 50%. No evidence of left ventricular hypertrophy. No evidence of pericardial effusion. No evidence of wall motion abnormality. Right ventricular systolic pressure 24. Patient was on IV Lasix with close monitoring of volumes and cardiorenal parameters. Electrolytes corrected as needed. Humanities Division Chair followed. Blood pressure was managed with calcium channel chet, Lasix and beta- chet. Per supervisor electronic coils, patient had acute kidney injury on chronic kidney disease stage IIIb/IV. Nonsteroid anti-inflammatory agents stopped. Patient was on Lasix. Creatinine was closely monitored, trended down. Magnesium replaced. Humanities Division Chair recommended hold JANIE AND ARB until renal function stabilized. Prior to discharge creatinine down to 3.8. Renal ultrasound revealed no evidence of hydronephrosis. Normal bilateral kidney echogenicity. Multiple small cysts within the right kidney. Supplemental oxygen provided and titrated to keep oximetry above 92%. Nebulizing treatment with bronchodilator provided as needed. Supportive care provided. Patient clinically stabilized and was ready for discharge home. FINAL DIAGNOSES: NSTEMI, likely type II Congestive heart failure with diastolic dysfunction and volume overload due to renal failure Acute kidney injury on chronic kidney disease stage IIIb/IV Longstanding history of smoking COPD Hypertension Chronic pain syndrome Diabetes mellitus Hyperlipidemia History of substance abuse with cocaine DISCHARGE MEDICATIONS: See Medication Reconciliation list. DISCHARGE INSTRUCTIONS: Patient was discharged home. Follow-up with a primary care provider in 1 week. I have been assigned to dictate discharge summary for this account. I was not involved in the patient's management. Jaymie Frye NP May 26, 2019 11:40
--- NOTE | 2019-05-26 16:17 | NUR ---
*-* INSURANCE *-* DISCHARGE SUMMARY HAS BEEN FAXED TO: [facility] Ref# [id number] fax# [phone] & KHADIJAHA Ref# [id number] CM: [employer] # [phone] ext [phone]
== END 2019-05-25 16:30 | disposition home or self-care (01) | DRG 190 ==
LOC: EDBD 03:11 → EMR 03:26 → EDBEDREQSVC 04:22 → 2W 05:49 → EDBEDREQ 05:57
DX: I21.A1 Myocardial infarction type 2 (principal); R00.0 Tachycardia, unspecified; I45.10 Unspecified right bundle-branch block; I13.0 Hypertensive heart and chronic kidney disease with heart failure and stage 1 through stage 4 chronic kidney disease, or unspecified chronic kidney disease; E11.22 Type 2 diabetes mellitus with diabetic chronic kidney disease; N18.4 Chronic kidney disease, stage 4 (severe); I50.30 Unspecified diastolic (congestive) heart failure; J44.1 Chronic obstructive pulmonary disease with (acute) exacerbation; G89.4 Chronic pain syndrome; N17.9 Acute kidney failure, unspecified; E87.79 Other fluid overload; E78.5 Hyperlipidemia, unspecified; F14.11 Cocaine abuse, in remission; Z59.0 Homelessness; F17.200 Nicotine dependence, unspecified, uncomplicated
CPT/HCPCS: 36415; 71045; 76770; 80048; 80053; 80307; 81003; 82550; 82962; 83036; 83735; 83880; 84484; 85025; 85610; 85730; 87081; 93005; 93306; 94640; 94664; 96374; 96375; 99285; J7620